=== PATIENT | male | born 1945 | race Caucasian/White ===

== ENCOUNTER 2020-06-25 10:42 | Inpatient (IN) | payer MEDICARE ==
[2020-06-25] MEDS ORDERED: IPRATROPIUM-ALBUTEROL 3 ML NEB INHALATION STA (11:14)
[2020-06-25] MEDS ORDERED: FUROSEMIDE 10 MG/ML 4 ML VIAL IV STA (11:14)
--- NOTE | 2020-06-25 11:18 | ED ---
Extremity Problem HPI - General Chief complaint: Extremity Problem,Nontraumatic Stated complaint: chest pain Time Seen by Provider: 06/25/20 10:55 Source: patient, family, RN notes reviewed Mode of arrival: ambulatory Limitations: no limitations - History of Present Illness Initial comments: This is a 74-year-old male who is a former smoker who denies any history of COPD or lung disease who does state he's been having peripheral edema to his legs for past 2 or 3 weeks also exertional dyspnea and chest pressure when he tries to walk at rest currently he has no pain or shortness of breath he has a fevers chills or sweats he denies any phlegm or cough this time no chest tightness or pain. No other modifying factors he is currently not taking any type of diuretic. MD Complaint: extremity swelling, other - Related Data Home Medications Medication Instructions Recorded Confirmed Aspirin EC [Ecotrin] 325 mg PO W/LUNCH 06/25/20 06/25/20 Furosemide [Lasix] 20 mg PO DAILY 06/25/20 06/25/20 Isosorbide Mononitrate ER [Imdur] 60 mg PO DAILY 06/25/20 06/25/20 Holland-3 Fatty Acids/Fish Oil [Fish 1 cap PO W/LUNCH 06/25/20 06/25/20 Oil 1,000 mg Softgel] Pravastatin Sodium [Pravachol] 80 mg PO HS 06/25/20 06/25/20 amLODIPine [Norvasc] 10 mg PO HS 06/25/20 06/25/20 atenoloL [Tenormin] 50 mg PO DAILY 06/25/20 06/25/20 Allergies Allergy/AdvReac Type Severity Reaction Status Date / Time No Known Allergies Allergy Verified 06/25/20 12:24 Review of Systems ROS Statement: Those systems with pertinent positive or pertinent negative responses have been documented in the HPI. ROS Other: All systems not noted in ROS Statement are negative. Past Medical History Past Medical History: No Reported History History of Any Multi-Drug Resistant Organisms: None Reported Past Surgical History: Cholecystectomy, Prostate Surgery Past Psychological History: No Psychological Hx Reported Smoking Status: Former smoker Past Alcohol Use History: None Reported Past Drug Use History: None Reported General Exam - General Exam Comments Initial Comments: This is a well-developed nourished awake alert oriented times 3 male Limitations: no limitations General appearance: alert, in no apparent distress Head exam: Present: atraumatic, normocephalic, normal inspection Eye exam: Present: normal appearance, PERRL, EOMI. Absent: scleral icterus, conjunctival injection, periorbital swelling ENT exam: Present: normal exam, mucous membranes moist Neck exam: Present: normal inspection, full ROM, other (No Stridor JVD or bruits). Absent: tenderness, meningismus, lymphadenopathy Respiratory exam: Present: decreased breath sounds, other (Basilar crackles). Absent: respiratory distress, wheezes, rales, rhonchi, stridor Cardiovascular Exam: Present: regular rate, normal rhythm, normal heart sounds. Absent: systolic murmur, diastolic murmur, rubs, gallop, clicks GI/Abdominal exam: Present: soft, normal bowel sounds. Absent: distended, tenderness, guarding, rebound, rigid Extremities exam: Present: normal inspection, full ROM, normal capillary refill, pedal edema (Bilateral pedal edema to the knees). Absent: tenderness, joint swelling, calf tenderness Back exam: Present: normal inspection Neurological exam: Present: alert, oriented X3, CN II-XII intact Psychiatric exam: Present: normal affect, normal mood Skin exam: Present: warm, dry, intact, normal color. Absent: rash Course Vital Signs 06/25/20 06/25/20 06/25/20 10:47 12:25 12:30 Temperature 97.8 F Pulse Rate 82 77 80 Respiratory 18 Rate Blood Pressure 133/68 O2 Sat by Pulse 96 Oximetry - Reevaluation(s) Reevaluation #1: 06/25/20 13:07 The patient did get some relief from initial treatment. Patient is definite evidence of CHF peripheral edema. Also has evidence of renal insufficiency with elevated d-dimer. I did discuss the findings with the patient and family as well as Dr. Suárez patient will be admitted Medical Decision Making - Lab Data Result diagrams: 06/25/20 11:20 06/25/20 11:20 Lab Results 06/25/20 06/25/20 06/25/20 Range/Units 11:20 11:20 11:20 WBC 6.2 (3.8-10.6) k/uL RBC 2.88 L (4.30-5.90) m/uL Hgb 7.9 L (13.0-17.5) gm/dL Hct 24.9 L (39.0-53.0) % MCV 86.4 (80.0-100.0) fL MCH 27.3 (25.0-35.0) pg MCHC 31.6 (31.0-37.0) g/dL RDW 15.8 H (11.5-15.5) % Plt Count 481 H (150-450) k/uL Neutrophils % 71 % Lymphocytes % 18 % Monocytes % 7 % Eosinophils % 1 % Basophils % 1 % Neutrophils # 4.4 (1.3-7.7) k/uL Lymphocytes # 1.1 (1.0-4.8) k/uL Monocytes # 0.4 (0-1.0) k/uL Eosinophils # 0.1 (0-0.7) k/uL Basophils # 0.0 (0-0.2) k/uL Hypochromasia Moderate Poikilocytosis Slight PT 11.9 (9.0-12.0) sec INR 1.2 H (<1.2) APTT 24.5 (22.0-30.0) sec D-Dimer 4.65 H (<0.60) mg/L FEU Sodium 128 L (137-145) mmol/L Potassium 4.2 (3.5-5.1) mmol/L Chloride 98 (98-107) mmol/L Carbon Dioxide 19 L (22-30) mmol/L Anion Gap 11 mmol/L BUN 26 H (9-20) mg/dL Creatinine 2.42 H (0.66-1.25) mg/dL Est GFR (CKD-EPI)AfAm 29 (>60 ml/min/1.73 sqM) Est GFR (CKD-EPI)NonAf 25 (>60 ml/min/1.73 sqM) Glucose 106 H (74-99) mg/dL Plasma Lactic Acid Daniele (0.7-2.0) mmol/L Calcium 9.4 (8.4-10.2) mg/dL Magnesium 2.1 (1.6-2.3) mg/dL Total Bilirubin 0.5 (0.2-1.3) mg/dL AST 34 (17-59) U/L ALT 22 (4-49) U/L Alkaline Phosphatase 258 H (38-126) U/L Creatine Kinase 62 (55-170) U/L Troponin I (0.000-0.034) ng/mL NT-Pro-B Natriuret Pep pg/mL Total Protein 6.3 (6.3-8.2) g/dL Albumin 4.1 (3.5-5.0) g/dL 06/25/20 06/25/20 06/25/20 Range/Units 11:20 11:20 11:20 WBC (3.8-10.6) k/uL RBC (4.30-5.90) m/uL Hgb (13.0-17.5) gm/dL Hct (39.0-53.0) % MCV (80.0-100.0) fL MCH (25.0-35.0) pg MCHC (31.0-37.0) g/dL RDW (11.5-15.5) % Plt Count (150-450) k/uL Neutrophils % % Lymphocytes % % Monocytes % % Eosinophils % % Basophils % % Neutrophils # (1.3-7.7) k/uL Lymphocytes # (1.0-4.8) k/uL Monocytes # (0-1.0) k/uL Eosinophils # (0-0.7) k/uL Basophils # (0-0.2) k/uL Hypochromasia Poikilocytosis PT (9.0-12.0) sec INR (<1.2) APTT (22.0-30.0) sec D-Dimer (<0.60) mg/L FEU Sodium (137-145) mmol/L Potassium (3.5-5.1) mmol/L Chloride (98-107) mmol/L Carbon Dioxide (22-30) mmol/L Anion Gap mmol/L BUN (9-20) mg/dL Creatinine (0.66-1.25) mg/dL Est GFR (CKD-EPI)AfAm (>60 ml/min/1.73 sqM) Est GFR (CKD-EPI)NonAf (>60 ml/min/1.73 sqM) Glucose (74-99) mg/dL Plasma Lactic Acid Daniele 1.4 (0.7-2.0) mmol/L Calcium (8.4-10.2) mg/dL Magnesium (1.6-2.3) mg/dL Total Bilirubin (0.2-1.3) mg/dL AST (17-59) U/L ALT (4-49) U/L Alkaline Phosphatase (38-126) U/L Creatine Kinase (55-170) U/L Troponin I 0.032 (0.000-0.034) ng/mL NT-Pro-B Natriuret Pep 3470 pg/mL Total Protein (6.3-8.2) g/dL Albumin (3.5-5.0) g/dL Critical Care Time Critical Care Time: Yes Total Critical Care Time: 31 Critical Care Time: Crit 31 minutes which includes initial presentation with history physical labs x-rays reevaluation patient response to therapy discuss with the admitting physician admission orders neck mentation the above as well as attempts review of old charting Disposition Clinical Impression: Failure, heart acute, congestive, Renal insufficiency, Anemia, Elevated d-dimer Disposition: ADMITTED IP TO THIS HOSP Condition: Fair Referrals: Jimmy Ott MD [Primary Care Provider] - 1-2 days
[2020-06-25 11:37] LABS: Basophils % (A) 1 %; Eosinophils # (A) 0.1 k/uL (0-0.7); Eosinophils % (A) 1 %; HCT 24.9 % (39.0-53.0); HGB 7.9 gm/dL (13.0-17.5); Hypochromasia Moderate; Lymphocytes # (A) 1.1 k/uL (1.0-4.8); Lymphocytes % (A) 18 %; MCH 27.3 pg (25.0-35.0); MCHC 31.6 g/dL (31.0-37.0); MCV 86.4 fL (80.0-100.0); Mean Platelet Volume 8.5; Monocytes # (A) 0.4 k/uL (0-1.0); Monocytes % (A) 7 %; Neutrophils # (A) 4.4 k/uL (1.3-7.7); Neutrophils % (A) 71 %; Platelet Count 481 k/uL (150-450); Poikilocytosis Slight; RBC 2.88 m/uL (4.30-5.90); RDW 15.8 % (11.5-15.5); WBC 6.2 k/uL (3.8-10.6)
[2020-06-25 11:51] LABS: Albumin 4.1 g/dL (3.5-5.0); Calcium 9.4 mg/dL (8.4-10.2); Magnesium 2.1 mg/dL (1.6-2.3); Potassium 4.2 mmol/L (3.5-5.1); Total Bilirubin 0.5 mg/dL (0.2-1.3); Total Protein 6.3 g/dL (6.3-8.2)
[2020-06-25 12:06] LABS: INR 1.2 (<1.2); Partial Thromboplastin Time 24.5 sec (22.0-30.0); Prothrombin Time 11.9 sec (9.0-12.0)
[2020-06-25 12:13] LABS: D-Dimer 4.65 mg/L FEU (<0.60)
--- NOTE | 2020-06-25 12:40 | XR ---
EXAMINATION TYPE: XR chest 2V DATE OF EXAM: 06/25/2020 COMPARISON: None HISTORY: 74-year-old male breath, difficulty breathing, lower extremity edema. TECHNIQUE: AP and lateral views FINDINGS: Heart mildly enlarged. Diffuse vascular prominence. No lateral pleural effusions with adjacent opacit y especially seen well on the lateral view. IMPRESSION: Correlate for CHF with pulmonary vascular congestion. Small bilateral pleural effusions with adjacent atelectasis and/or consolidation.
--- NOTE | 2020-06-25 13:19 | ED ---
Medical Decision Making - Lab Data Result diagrams: 06/25/20 11:20 06/25/20 11:20 Lab Results 06/25/20 06/25/20 06/25/20 Range/Units 11:20 11:20 11:20 WBC 6.2 (3.8-10.6) k/uL RBC 2.88 L (4.30-5.90) m/uL Hgb 7.9 L (13.0-17.5) gm/dL Hct 24.9 L (39.0-53.0) % MCV 86.4 (80.0-100.0) fL MCH 27.3 (25.0-35.0) pg MCHC 31.6 (31.0-37.0) g/dL RDW 15.8 H (11.5-15.5) % Plt Count 481 H (150-450) k/uL Neutrophils % 71 % Lymphocytes % 18 % Monocytes % 7 % Eosinophils % 1 % Basophils % 1 % Neutrophils # 4.4 (1.3-7.7) k/uL Lymphocytes # 1.1 (1.0-4.8) k/uL Monocytes # 0.4 (0-1.0) k/uL Eosinophils # 0.1 (0-0.7) k/uL Basophils # 0.0 (0-0.2) k/uL Hypochromasia Moderate Poikilocytosis Slight PT 11.9 (9.0-12.0) sec INR 1.2 H (<1.2) APTT 24.5 (22.0-30.0) sec D-Dimer 4.65 H (<0.60) mg/L FEU Sodium 128 L (137-145) mmol/L Potassium 4.2 (3.5-5.1) mmol/L Chloride 98 (98-107) mmol/L Carbon Dioxide 19 L (22-30) mmol/L Anion Gap 11 mmol/L BUN 26 H (9-20) mg/dL Creatinine 2.42 H (0.66-1.25) mg/dL Est GFR (CKD-EPI)AfAm 29 (>60 ml/min/1.73 sqM) Est GFR (CKD-EPI)NonAf 25 (>60 ml/min/1.73 sqM) Glucose 106 H (74-99) mg/dL Plasma Lactic Acid Daniele (0.7-2.0) mmol/L Calcium 9.4 (8.4-10.2) mg/dL Magnesium 2.1 (1.6-2.3) mg/dL Total Bilirubin 0.5 (0.2-1.3) mg/dL AST 34 (17-59) U/L ALT 22 (4-49) U/L Alkaline Phosphatase 258 H (38-126) U/L Creatine Kinase 62 (55-170) U/L Troponin I (0.000-0.034) ng/mL NT-Pro-B Natriuret Pep pg/mL Total Protein 6.3 (6.3-8.2) g/dL Albumin 4.1 (3.5-5.0) g/dL 06/25/20 06/25/20 06/25/20 Range/Units 11:20 11:20 11:20 WBC (3.8-10.6) k/uL RBC (4.30-5.90) m/uL Hgb (13.0-17.5) gm/dL Hct (39.0-53.0) % MCV (80.0-100.0) fL MCH (25.0-35.0) pg MCHC (31.0-37.0) g/dL RDW (11.5-15.5) % Plt Count (150-450) k/uL Neutrophils % % Lymphocytes % % Monocytes % % Eosinophils % % Basophils % % Neutrophils # (1.3-7.7) k/uL Lymphocytes # (1.0-4.8) k/uL Monocytes # (0-1.0) k/uL Eosinophils # (0-0.7) k/uL Basophils # (0-0.2) k/uL Hypochromasia Poikilocytosis PT (9.0-12.0) sec INR (<1.2) APTT (22.0-30.0) sec D-Dimer (<0.60) mg/L FEU Sodium (137-145) mmol/L Potassium (3.5-5.1) mmol/L Chloride (98-107) mmol/L Carbon Dioxide (22-30) mmol/L Anion Gap mmol/L BUN (9-20) mg/dL Creatinine (0.66-1.25) mg/dL Est GFR (CKD-EPI)AfAm (>60 ml/min/1.73 sqM) Est GFR (CKD-EPI)NonAf (>60 ml/min/1.73 sqM) Glucose (74-99) mg/dL Plasma Lactic Acid Daniele 1.4 (0.7-2.0) mmol/L Calcium (8.4-10.2) mg/dL Magnesium (1.6-2.3) mg/dL Total Bilirubin (0.2-1.3) mg/dL AST (17-59) U/L ALT (4-49) U/L Alkaline Phosphatase (38-126) U/L Creatine Kinase (55-170) U/L Troponin I 0.032 (0.000-0.034) ng/mL NT-Pro-B Natriuret Pep 3470 pg/mL Total Protein (6.3-8.2) g/dL Albumin (3.5-5.0) g/dL Disposition Clinical Impression: Failure, heart acute, congestive, Renal insufficiency, Anemia, Elevated d- dimer, Acute bronchospasm Disposition: ADMITTED IP TO THIS HOSP Condition: Fair Referrals: Jimmy Ott MD [Primary Care Provider] - 1-2 days
--- NOTE | 2020-06-25 15:09 | NM ---
EXAMINATION TYPE: NM pul vent and perfuse DATE OF EXAM: 06/25/2020 COMPARISON: Chest x-ray same date HISTORY: Difficulty breathing, elevated d-dimer, congestive heart failure TECHNIQUE: Utilizing inhalation of 70.2 mCi Tc 99m DTPA aerosol and intravenous injection of 5.05 mC i of Tc 99m MAA, ventilation and perfusion images are acquired post injection in multiple projections . FINDINGS: Normal radiotracer distribution is noted in the lungs. There is no evidence of mismatched defects. IMPRESSION: Low probability of pulmonary embolus.
--- NOTE | 2020-06-25 15:53 | US ---
EXAMINATION TYPE: US venous doppler duplex LE DATE OF EXAM: 06/25/2020 3:42 PM COMPARISON: NONE CLINICAL HISTORY: Peripheral edema bilateral, elevated d-dimer. SIDE PERFORMED: Bilateral TECHNIQUE: The lower extremity deep venous system is examined utilizing real time linear array sonog beulah with graded compression, doppler sonography and color-flow sonography. VESSELS IMAGED: External Iliac Vein (EIV) Common Femoral Vein Deep Femoral Vein Greater Saphenous Vein * Femoral Vein Popliteal Vein Small Saphenous Vein * Proximal Calf Veins (* superficial vessels) There is normal flow, compressibility, vascular waveforms. Right Leg: Negative for DVT Left Leg: Negative for DVT IMPRESSION: No evident deep venous thrombosis at or above the knees.
[2020-06-25] MEDS: IPRATROPIUM-ALBUTEROL 3 ML NEB INHALATION SCH ×2 (16:09→20:28)
[2020-06-25] MEDS ORDERED: IPRATROPIUM-ALBUTEROL 3 ML NEB INHALATION PRN (20:32)
[2020-06-25] MEDS: PRAVASTATIN SODIUM 80 MG TAB PO SCH (20:52)
[2020-06-25] MEDS ORDERED: amLODIPine 10 MG TAB PO SCH (21:00)
[2020-06-26] MEDS: FUROSEMIDE 10 MG/ML 4 ML VIAL IV SCH ×2 (00:17→13:08)
[2020-06-26] MEDS: IPRATROPIUM-ALBUTEROL 3 ML NEB INHALATION SCH ×4 (07:46→18:50)
[2020-06-26] MEDS ORDERED: FUROSEMIDE 20 MG TAB PO SCH (09:00)
[2020-06-26] MEDS ORDERED: atenoloL 50 MG TAB PO SCH (09:00)
[2020-06-26] MEDS: hydrALAZINE HCL 25 MG TAB PO SCH ×3 (09:40→20:48)
[2020-06-26] MEDS: ISOSORBIDE MONONITRATE ER 60 MG TAB.ER.24H PO SCH (09:40)
[2020-06-26] MEDS: ASPIRIN 81 MG PO SCH (09:40)
[2020-06-26 10:56] VITALS: RESP 16
[2020-06-26 11:06] VITALS: BMI 23.6
--- NOTE | 2020-06-26 11:49 | ECHOF ---
Referral Reason:lv function MEASUREMENTS -------- HEIGHT: 172.7 cm WEIGHT: 70.3 kg BP: 119/87 RVIDd: 3.2 cm (< 3.3) IVSd: 1.2 cm (0.6 - 1.1) LVIDd: 4.3 cm (3.9 - 5.3) LVPWd: 1.3 cm (0.6 - 1.1) IVSs: 1.5 cm LVIDs: 2.8 cm LVPWs: 1.8 cm LA Diam: 5.1 cm (2.7 - 3.8) LAESV Index (A-L): 44.66 ml/m Ao Diam: 3.4 cm (2.0 - 3.7) AV Cusp: 2.0 cm (1.5 - 2.6) MV EXCURSION: 17.701 mm (> 18.000) MV EF SLOPE: 86 mm/s (70 - 150) EPSS: 0.3 cm RAP: 5.00 mmHg RVSP: 40.13 mmHg FINDINGS -------- Sinus rhythm. This was a technically good study. The left ventricular size is normal. There is mild concentric left ventricular hypertrophy. Overa ll left ventricular systolic function is normal with, an EF between 55 - 60 %. The right ventricle is normal in size. The left atrium is markedly dilated. The right atrial size is normal. There is [id number] aortic regurgitation. Mild mitral annular calcification present. Moderate mitral regurgitation is present. Mild tricuspid regurgitation present. There is mild pulmonary hypertension. There is no pulmonic regurgitation present. The aortic root size is normal. There is no pericardial effusion. CONCLUSIONS -------- 1. The left ventricular size is normal. 2. There is mild concentric left ventricular hypertrophy. 3. Overall left ventricular systolic function is normal with, an EF between 55 - 60 %. 4. The right ventricle is normal in size. 5. The left atrium is markedly dilated. 6. The right atrial size is normal. 7. There is [id number]-[id number] aortic regurgitation. 8. Mild mitral annular calcification present. 9. Moderate mitral regurgitation is present. 10. Mild tricuspid regurgitation present. 11. There is mild pulmonary hypertension. 12. There is no pulmonic regurgitation present. 13. The aortic root size is normal. 14. There is no pericardial effusion. STATE COMPTROLLER: Mya Stark RDCS
[2020-06-26] MEDS ORDERED: ASPIRIN 325 MG TAB PO SCH (12:30)
[2020-06-26] MEDS ORDERED: NON FORMULARY DRUG (Omega-3 Fatty Acids/Fish Oil [Fish Oil 1,000 Mg Softgel] 1 CAP) PO SCH (12:30)
[2020-06-26] MEDS ORDERED: DARBEPOETIN ALFA 60 MCG/0.3 ML SYRINGE SQ SCH (13:00)
--- NOTE | 2020-06-26 16:37 | CONS ---
CONSULTATION This is a 74-year-old gentleman with a known history of renal failure. He usually has his nephrology care at [facility]. He has hypertension, hyperlipidemia and chronic kidney disease. He is here in the hospital because of increasing swelling of lower extremities. He came to the emergency room and was found to have edema of lower extremities and elevated D-dimer. He also complained of nondescript chest tightness and pressure. I am seeing him mainly because of possible congestive heart failure. He has no chest discomfort. Denies any palpitations or syncope but does have shortness of breath with activity. He is known to have chronic CKD, sees a health technician, but lower extremity edema has increased lately. PAST MEDICAL HISTORY: 1. Hypertension. 2. Chronic kidney disease. 3. History of cholecystectomy and prostate surgery. MEDICATIONS: Medications at home include aspirin, Lasix 20 mg daily, Imdur 60 mg daily, pravastatin 80 mg daily, amlodipine 10 mg daily, atenolol 50 mg daily. ALLERGIES: NO KNOWN DRUG ALLERGIES. PHYSICAL EXAMINATION: On examination, blood pressure is 128/70, pulse rate is 80 per minute. HEENT: Unremarkable. Fundus was not examined by me. NECK: Supple. There is JVD of 1 cm. No carotid bruit. CHEST: S1, S2 heard normally. Short systolic murmur noted. Lungs reveal diminished air entry over both bases with fine rales. Abdomen is soft, nontender. Lower extremities reveal bilateral 2+ edema, diminished pulses. CENTRAL NERVOUS SYSTEM: Grossly no focal deficits. EKG revealed a sinus mechanism with inferior Q-waves, raising the possibility of inferior nondiagnostic Q-waves and incomplete right bundle branch block pattern with nonspecific ST and T-wave changes. LABORATORY DATA: Three sets of troponins are unremarkable. His BNP is elevated at 3400. Albumin level is normal. D-dimer is elevated. This patient had a bilateral lower extremity venous Doppler which was negative for any DVT and he also had a low-probability V/Q scan. IMPRESSION: 1. Mild exacerbation of heart failure, probably systolic. 2. Lower extremity edema of unclear etiology. Could be multifactorial related to amlodipine as well as underlying CHF as well, and this needs to be looked into. 3. Chronic kidney disease with a creatinine in the range of 2.5 or so. RECOMMENDATIONS: I am recommending that we do some cautious diuresis with Lasix at 40 mg q.12 hours. Obtain echocardiogram to assess LV function. Seek input from Nephrology. Based on this, we will make further recommendations. I discussed my thoughts in detail with the patient. Thank you very much for the consult. HAWA / ARNULFON: [id number] /
--- NOTE | 2020-06-26 16:43 | CONS ---
CONSULTATION REASON FOR CONSULT: Renal failure. HISTORY OF PRESENT ILLNESS: Patient is a 74-year-old male who has chronic kidney disease stage [address] Arteaga in [place]. Patient was admitted to the hospital with complaints of increased lower extremity swelling and some shortness of breath which has been progressively worsening. He denied any chest pains. No nausea, vomiting, abdominal pain or diarrhea. No fever or chills. No cough. PAST MEDICAL HISTORY: Chronic kidney disease, hypertension, dyslipidemia. PAST SURGICAL HISTORY: Cholecystectomy. SOCIAL HISTORY: Patient is a former smoker. No history of drug abuse or alcohol abuse. MEDICATIONS: Prior to admission included Imdur, Lasix, aspirin, Pravachol, Norvasc, Tenormin. ALLERGIES: None. REVIEW OF SYSTEMS: As per HPI. Other systems negative. PHYSICAL EXAMINATION: Patient is comfortable, awake. He is not in any acute distress. Blood pressure was 121/65, heart rate 80 per minute, he is afebrile. Examination of the heart S1, S2. Examination of the lungs, bilateral breath sounds are heard. Abdomen is soft, nontender. Examination of the lower extremities shows trace edema bilaterally. JEWEL DIAMETER GAUGER exam grossly intact. LABS: Show sodium of 128, potassium 4.2, chloride 98, CO2 is 19, BUN 26, serum creatinine 2.42, albumin is 4.1. UA is not available. INR 1.2. Hemoglobin 7.9, white cell count 6.2. Chest x-ray shows CHF with bilateral pleural effusions as well. Echocardiogram done this admission shows ejection fraction 55%-60%. [id number] aortic regurgitation. Mild pulmonary hypertension noted. ASSESSMENT: 1. Chronic kidney disease stage 4 with baseline creatinine about 2.3 per patient. Etiology is likely nephrosclerosis versus chronic GN. The patient follows with Dr. Arteaga as outpatient in [place]. He is advised to maintain follow up as outpatient. Renal function appears to be at baseline according to the patient. At this time we do not have any prior labs available for comparison. 2. Acute on top of chronic diastolic with ejection fraction 55% to 60%. 3. Volume overload. 4. Hypertension. 5. Anemia of chronic disease, rule out iron deficiency. No active bleeding noted at this time. PLAN: Continue with current dose of IV Lasix. Check urinalysis. Check iron profile. Add Aranesp for anemia. Thank you for this consultation. Will continue to follow the patient with you during his hospitalization. HAWA / ARNULFON: [id number] /
[2020-06-26] MEDS: FUROSEMIDE 10 MG/ML 10 ML VIAL IV SCH ×2 (17:27→20:48)
[2020-06-26 17:47] LABS: Appearance,Urine Clear (Clear); Bilirubin,Urine Negative (Negative); Blood,Urine Trace (Negative); Color,Urine Colorless; Glucose,Urine (UA) Negative (Negative); Ketones,Urine Negative (Negative); Leukocyte Esterase,Urine Negative (Negative); Nitrite,Urine Negative (Negative); PH, Urine 6.5 (5.0-8.0); Protein,Urine Trace (Negative); Specific Gravity,Urine 1.004 (1.001-1.035); Urobilinogen,Urine <2.0 mg/dL (<2.0); WBC,Urine <1 /hpf (0-5)
--- NOTE | 2020-06-26 19:40 | P.HPIM ---
History of Present Illness H&P Date: 06/26/20 Chief Complaint: Shortness of breath History of presenting complaint: This is a 74-year-old patient of Dr. Ott. Chronic stable medical conditions include hypertension, hyperlipidemia, chronic kidney disease that he follows with Dr. Arteaga. Patient had surgery for BPH but patient had that his symptoms go for long time that resulted this chronic kidney disease. Patient for about 3 weeks and noticed some swelling of the lower extremity. Progressively getting worse. Had been getting tired. Also notices getting short of breath with exertion. No cough. No fever no chills. Also noticed some chest pressure on exertion. Also was having orthopnea and was in fact last few days sitting up in a chair and sleeping. Appetite had gone down. Patient was given IV Lasix in the ER and breathing is better this morning. Daughter the bedside. Edema started to go down. Review of systems: GEN.: Tired EYES: None HEENT: None NECK: None RESPIRATORY: As above CARDIOVASCULAR: As above GASTROINTESTINAL: None GENITOURINARY: None MUSCULOSKELETAL: Joint pains LYMPHATICS: None HEMATOLOGICAL: None PSYCHIATRY: None NEUROLOGICAL: None Past medical history to include: Hypertension, hyperlipidemia chronic kidney disease, BPH treated with surgery Social history: . Did smoke in the past. No alcohol. Physical examination: VITAL SIGNS: 97.8, 82, 18, 133/68, 96% room air] GENERAL: BMI 23.6, sitting up, not in distress. EYES: Pupils equal. Conjunctiva normal. HEENT: External appearance of nose and ears normal, oral cavity grossly normal. NECK: JVD raised; masses not palpable. HEART: First and second heart sounds are normal; some edema. LUNGS: Respiratory rate normal; basal crackles. ABDOMEN: Soft, nontender, liver spleen not palpable, no masses palpable. PSYCH: Alert and oriented x3; mood and affect normal MUSCULAR skeletal: Evidence of OA. NEUROLOGICAL: Cranial nerves grossly intact; no facial asymmetry, power and sensation grossly intact. LYMPHATICS: No lymph nodes palpable in the axilla and neck INVESTIGATIONS, reviewed in the clinical context: White count 6.2 hemoglobin 7.9 platelets 481 potassium 4.2 bun 26 creatinine 2.4 to Troponin I 0.032, 0.031, 0.033 ProBNP 3470 EKG tracing personally reviewed by me-sinus rhythm with some ST segment changes and T wave changes Chest x-ray film personally reviewed by me-pulmonary edema with left pleural effusion VQ scan low probably for PE Doppler ultrasound lower extremity negative for DVT 2-D echocardiogram EF 55/60% mild LVH, moderate MR Assessment: -Acute congestive heart failure exacerbation from gastric dysfunction EF 55-60% -Moderate mitral regurgitation -Chronic kidney disease stage III likely nephrosclerosis -Essential hypertension -Hyperlipidemia -Anemia likely of chronic kidney disease Plan: Care was discussed length with patient daughter the bedside. Patient advised to limit his fluid intake. Change Lasix to 60 mg every 8. Repeat labs in the morning. Consultation made to nephrology and cardiology. Other home medications to BE continue. Past Medical History Past Medical History: Hyperlipidemia, Hypertension, Renal Disease History of Any Multi-Drug Resistant Organisms: None Reported Past Surgical History: Cholecystectomy, Prostate Surgery Past Anesthesia/Blood Transfusion Reactions: No Reported Reaction Past Psychological History: No Psychological Hx Reported Smoking Status: Former smoker Past Alcohol Use History: None Reported Past Drug Use History: None Reported - Past Family History Mother Family Medical History: Cancer Additional Family Medical History / Comment(s): passed at 78 y/o Father Additional Family Medical History / Comment(s): from TB; patient was not in contact with father at the time. Medications and Allergies Home Medications Medication Instructions Recorded Confirmed Type Aspirin EC [Ecotrin] 325 mg PO W/LUNCH 06/25/20 06/25/20 History Furosemide [Lasix] 20 mg PO DAILY 06/25/20 06/25/20 History Isosorbide Mononitrate ER [Imdur] 60 mg PO DAILY 06/25/20 06/25/20 History [place]-3 Fatty Acids/Fish Oil [Fish 1 cap PO W/LUNCH 06/25/20 06/25/20 History Oil 1,000 mg Softgel] Pravastatin Sodium [Pravachol] 80 mg PO HS 06/25/20 06/25/20 History amLODIPine [Norvasc] 10 mg PO HS 06/25/20 06/25/20 History atenoloL [Tenormin] 50 mg PO DAILY 06/25/20 06/25/20 History Allergies Allergy/AdvReac Type Severity Reaction Status Date / Time No Known Allergies Allergy Verified 06/25/20 12:24 Physical Exam Vitals: Vital Signs Temp Pulse Pulse Resp BP BP Pulse Ox 06/26/20 04:00 98.3 F 81 17 119/87 06/26/20 00:00 98.0 F 86 16 123/68 06/25/20 20:44 80 06/25/20 20:28 80 06/25/20 19:58 97.8 F 86 16 142/70 06/25/20 16:21 80 06/25/20 16:11 76 06/25/20 15:53 97.8 F 79 18 122/67 96 06/25/20 14:55 97.8 F 81 18 132/75 96 06/25/20 13:13 79 18 122/67 96 06/25/20 12:30 80 06/25/20 12:25 77 06/25/20 10:47 97.8 F 82 18 133/68 96 Intake and Output 06/25/20 06/26/20 06/26/20 22:59 06:59 14:59 Intake Total 100 118 Output Total 300 Balance 100 -300 118 Intake: Oral 100 118 Output: Urine 300 Other: Weight 70.4 kg Results CBC & Chem 7: 06/25/20 11:20 06/25/20 11:20 Labs: Abnormal Lab Results - Last 24 Hours (Table) 06/25/20 06/25/20 06/25/20 Range/Units 11:20 11:20 11:20 RBC 2.88 L (4.30-5.90) m/uL Hgb 7.9 L (13.0-17.5) gm/dL Hct 24.9 L (39.0-53.0) % RDW 15.8 H (11.5-15.5) % Plt Count 481 H (150-450) k/uL INR 1.2 H (<1.2) D-Dimer 4.65 H (<0.60) mg/L FEU Sodium 128 L (137-145) mmol/L Carbon Dioxide 19 L (22-30) mmol/L BUN 26 H (9-20) mg/dL Creatinine 2.42 H (0.66-1.25) mg/dL Glucose 106 H (74-99) mg/dL Alkaline Phosphatase 258 H (38-126) U/L Thrombosis Risk Factor Assmnt - Choose All That Apply Any of the Below Risk Factors Present?: Yes Each Factor Represents 1 point: Heart failure (<1month), Swollen legs (current) Each Risk Factor Represents 2 Points: Age 61-74 years Thrombosis Risk Factor Assessment Total Risk Factor Score: 4 Thrombosis Risk Factor Assessment Level: Moderate Risk
[2020-06-26 20:34] LABS: % Iron Saturation 2.72 (15.00-50.00)
[2020-06-26] MEDS: PRAVASTATIN SODIUM 80 MG TAB PO SCH (20:48)
[2020-06-27 03:49] VITALS: TEMP 97.9
[2020-06-27] MEDS: IPRATROPIUM-ALBUTEROL 3 ML NEB INHALATION SCH ×3 (07:53→15:28)
[2020-06-27] MEDS: ASPIRIN 81 MG PO SCH (08:41)
[2020-06-27] MEDS: FUROSEMIDE 10 MG/ML 10 ML VIAL IV SCH (08:41)
[2020-06-27] MEDS: ISOSORBIDE MONONITRATE ER 60 MG TAB.ER.24H PO SCH (08:41)
[2020-06-27] MEDS: hydrALAZINE HCL 25 MG TAB PO SCH (08:41)
[2020-06-27 08:48] VITALS: BP 111/65
[2020-06-27] MEDS ORDERED: METOPROLOL TARTRATE 25 MG TAB PO SCH (09:00)
[2020-06-27 11:45] VITALS: PULSE 88
[2020-06-27 13:16] LABS: Calcium 9.2 mg/dL (8.4-10.2); Potassium 3.2 mmol/L (3.5-5.1)
--- NOTE | 2020-06-27 15:49 | P.PN ---
Subjective Progress Note Date: 06/27/20 Follow-up for C daily. Feels better. Volume status much better no nausea vomiting diarrhea. Making good urine. Objective - Vital Signs Vital signs: Vital Signs Temp 97.9 F 06/27/20 03:47 Pulse 88 06/27/20 11:43 Resp 16 06/27/20 11:04 BP 111/65 06/27/20 08:00 Pulse Ox 95 06/27/20 08:00 Intake & Output 06/26/20 06/27/20 06/27/20 18:59 06:59 18:59 Intake Total 838 360 Output Total 1600 1850 Balance -762 -1490 Weight 70.4 kg 70.1 kg Intake: Oral 838 360 Output: Urine 1600 1850 - Exam No acute distress S1-S2 heard Lungs clear Abdomen soft Trace edema - Labs CBC & Chem 7: 06/25/20 11:20 06/27/20 12:51 Labs: Abnormal Lab Results - Last 24 Hours (Table) 06/25/20 06/26/20 06/27/20 Range/Units 11:20 17:21 12:51 Sodium 132 L (137-145) mmol/L Potassium 3.2 L (3.5-5.1) mmol/L Chloride 93 L (98-107) mmol/L BUN 28 H (9-20) mg/dL Creatinine 2.67 H (0.66-1.25) mg/dL Glucose 115 H (74-99) mg/dL Iron 12 L (65-175) ug/dL % Saturation 2.72 L (15.00-50.00) Urine Protein Trace H (Negative) Urine Blood Trace H (Negative) Assessment and Plan Assessment: #1 chronic kidney disease stage IV secondary to nephrosclerosis versus chronic GN. Baseline creatinine of 2.3 MG per DL. #2 diastolic CHF #3 volume overload #4 hypertension with chronic kidney disease #5 anemia with chronic kidney disease #6 metabolic bone disease. Plan: #1 renal function stable close to baseline. Anticipate to rise in creatinine with diuresis. #2 agree with changing IV Lasix to 40 mg by mouth twice a day. #3 replace potassium 20 mEq daily at discharge. #4 stable from nephrology point of for discharge to follow-up with primary nephrology next week in the clinic with repeat BMP.
[2020-06-27] MEDS ORDERED: POTASSIUM CHLORIDE ER 20 MEQ TAB.ER PO STA (16:18)
--- NOTE | 2020-06-27 16:34 | PN ---
PROGRESS NOTE Mr. Dawson is a 74-year-old gentleman that is admitted to hospital with acute exacerbation of chronic systolic heart failure and lower extremity edema and chronic renal insufficiency. He is treated with IV Lasix. I am seeing the patient for the first time today and the patient's symptoms have improved significantly. He had an echocardiogram that showed normal LV function with an ejection fraction of 55-60%, moderate mitral regurgitation and mild to moderate aortic regurgitation. I spoke to Dr. Suárez, the hospitalist, and the plan at this stage is to discharge him home and arrange follow up with his own equal opportunity specialist. EXAM: Heart rate is 97 beats per minute, blood pressure is 111/65, respiratory rate is 18, O2 saturation is 95% on room air. There is no jugular venous distention. Chest exam reveals good air entry bilaterally. Heart exam reveals first and second heart sounds. No gallop. Has a systolic murmur at the left lower sternal border. Abdomen is soft. Exam of extremities did not reveal any edema. Peripheral pulses are felt. Exam of extremities reveals bilateral pitting edema but this has improved. The patient had a V/Q scan that is negative for pulmonary embolism. ASSESSMENT: 1. Acute exacerbation of chronic diastolic heart failure. 2. Dyslipidemia. 3. Chronic renal insufficiency. PLAN: Patient is switched to p.o. Lasix, discharge home and follow up with his own equal opportunity specialist. MMODL / IJN: [id number] /
[2020-06-27] MEDS ORDERED: POTASSIUM CHLORIDE ER 20 MEQ TAB.ER PO SCH (17:00)
--- NOTE | 2020-06-27 20:31 | P.DS ---
Providers Date of admission: 06/25/20 13:15 Expected date of discharge: 06/27/20 Attending physician: Tacos Suárez Consults: 06/25/20 15:34 Consult Physician Routine Consulting Provider: Grabiel Velasco Consult Reason/Comments: Heart Failure Do you want consulting provider notified?: Yes 06/26/20 08:50 Consult Physician Routine Consulting Provider: Raine Lima Consult Reason/Comments: CKD Do you want consulting provider notified?: Yes Primary care physician: Jimmy [facility] Course: Chief Complaint: Shortness of breath History of presenting complaint: This is a 74-year-old patient of Dr. Ott. Chronic stable medical conditions include hypertension, hyperlipidemia, chronic kidney disease that he follows with Dr. Arteaga. Patient had surgery for BPH but patient had that his symptoms go for long time that resulted this chronic kidney disease. Patient for about 3 weeks and noticed some swelling of the lower extremity. Progres sively getting worse. Had been getting tired. Also notices getting short of breath with exertion. No cough. No fever no chills. Also noticed some chest pressure on exertion. Also was having orthopnea and was in fact last few days sitting up in a chair and sleeping. Appetite had gone down. Patient was given IV Lasix in the ER and breathing is better this morning. Daughter the bedside. Edema started to go down. Admitted with CHF exacerbation. EF 55-60%. Responded well to IV Lasix. Seen by cardiology and nephrology. Today-doing well. Breathing much improved. Up and about. Discussed with Dr. oRwe. Care discussed with the patient. To follow-up with cardiology and nephrology. Potassium replaced. Discussion and discharge planning more than 35 minutes Consultation: [facility] Physical examination: VITAL SIGNS: Afebrile, 97, 16, 111/65, 95% room air GENERAL: Sitting up, comfortable EYES: Pupils equal. Conjunctiva normal. HEENT: External appearance of nose and ears normal, oral cavity grossly normal. NECK: JVD raised; masses not palpable. HEART: First and second heart sounds are normal; no edema. Systolic murmur LUNGS: Respiratory rate normal; basal crackles. ABDOMEN: Soft, nontender, liver spleen not palpable, no masses palpable. PSYCH: Alert and oriented x3; mood and affect normal MUSCULAR skeletal: Evidence of OA. INVESTIGATIONS, reviewed in the clinical context: Potassium 3.2 creatinine 2.67 Previous testing White count 6.2 hemoglobin 7.9 platelets 481 potassium 4.2 bun 26 creatinine 2.4 to Troponin I 0.032, 0.031, 0.033 ProBNP 3470 EKG tracing personally reviewed by me-sinus rhythm with some ST segment changes and T wave changes Chest x-ray film personally reviewed by me-pulmonary edema with left pleural effusion VQ scan low probably for PE Doppler ultrasound lower extremity negative for DVT 2-D echocardiogram EF 55/60% mild LVH, moderate MR Assessment: -Acute congestive heart failure exacerbation from diastolic dysfunction EF 55- 60% -Moderate mitral regurgitation -Chronic kidney disease stage III likely nephrosclerosis -Essential hypertension -Hyperlipidemia -Anemia likely of chronic kidney disease Disposition: Home Patient Condition at Discharge: Stable Plan - Discharge Summary New Discharge Prescriptions: New hydrALAZINE HCL [Apresoline] 25 mg PO TID #90 tab Aspirin 81 mg PO W/LUNCH chew Furosemide [Lasix] 40 mg PO BID #60 tablet Metoprolol Tartrate [Lopressor] 25 mg PO BID #60 tab Continue Pravastatin Sodium [Pravachol] 80 mg PO HS [place]-3 Fatty Acids/Fish Oil [Fish Oil 1,000 mg Softgel] 1 cap PO W/LUNCH Isosorbide Mononitrate ER [Imdur] 60 mg PO DAILY Discontinued atenoloL [Tenormin] 50 mg PO DAILY amLODIPine [Norvasc] 10 mg PO HS Aspirin EC [Ecotrin] 325 mg PO W/LUNCH Furosemide [Lasix] 20 mg PO DAILY Discharge Medication List Isosorbide Mononitrate ER [Imdur] 60 mg PO DAILY 06/25/20 [History] [place]-3 Fatty Acids/Fish Oil [Fish Oil 1,000 mg Softgel] 1 cap PO W/LUNCH 06/25/20 [History] Pravastatin Sodium [Pravachol] 80 mg PO HS 06/25/20 [History] Aspirin 81 mg PO W/LUNCH chew 06/27/20 [Rx] Furosemide [Lasix] 40 mg PO BID #60 tablet 06/27/20 [Rx] Metoprolol Tartrate [Lopressor] 25 mg PO BID #60 tab 06/27/20 [Rx] hydrALAZINE HCL [Apresoline] 25 mg PO TID #90 tab 06/27/20 [Rx] Follow up Appointment(s)/Referral(s): catdiologistdr [Other] - 1 Week kidney-doctord[facility] [Other] - 1 Week Jimmy Ott MD [Primary Care Provider] - 1-2 days Patient Instructions/Handouts: Heart Failure (ER) Activity/Diet/Wound Care/Special Instructions: bmp- 3 days Discharge Disposition: HOME SELF-CARE
== END 2020-06-27 18:02 | disposition home or self-care (01) | DRG 291 ==
LOC: EC 10:42 → 3SCARD 13:15
PROVIDERS: ADMIT Hospitalist; ATTEND Hospitalist
DX: I13.0 Hypertensive heart and chronic kidney disease with heart failure and stage 1 through stage 4 chronic kidney disease, or unspecified chronic kidney disease (principal); I50.33 Acute on chronic diastolic (congestive) heart failure; N18.4 Chronic kidney disease, stage 4 (severe); E78.5 Hyperlipidemia, unspecified; D63.1 Anemia in chronic kidney disease; N40.0 Benign prostatic hyperplasia without lower urinary tract symptoms; I27.20 Pulmonary hypertension, unspecified; E88.89 Other specified metabolic disorders; I08.0 Rheumatic disorders of both mitral and aortic valves; Z87.891 Personal history of nicotine dependence; Z79.899 Other long term (current) drug therapy; Z90.49 Acquired absence of other specified parts of digestive tract; Z80.9 Family history of malignant neoplasm, unspecified; Z83.6 Family history of other diseases of the respiratory system
CPT/HCPCS: 36415; 71046; 78582; 80048; 80053; 81001; 82550; 83540; 83550; 83605; 83735; 83880; 84484; 85025; 85379; 85610; 85730; 93005; 93306; 93970; 94640; 94760; 96374; 99291

== ENCOUNTER 2020-07-20 06:41 | Inpatient (IN) | payer MEDICARE ==
[2020-07-20] MEDS ORDERED: SODIUM CHLORIDE 0.9% 1,000 ML IV STA (06:51)
[2020-07-20] MEDS ORDERED: SODIUM CHLORIDE 0.9% 1,000 ML IV ONE (06:59)
[2020-07-20 07:11] LABS: Anisocytosis Slight; Hypochromasia Marked; MCH 23.8 pg (25.0-35.0); MCHC 28.4 g/dL (31.0-37.0); MCV 83.7 fL (80.0-100.0); Mean Platelet Volume 7.7; Platelet Count 621 k/uL (150-450); Poikilocytosis Moderate; RBC 1.56 m/uL (4.30-5.90); RDW 16.4 % (11.5-15.5); WBC 10.8 k/uL (3.8-10.6)
[2020-07-20 07:13] LABS: HGB 3.7 gm/dL (13.0-17.5)
[2020-07-20 07:14] LABS: HCT 13.1 % (39.0-53.0)
[2020-07-20 07:17] LABS: Albumin 3.4 g/dL (3.5-5.0); Calcium 9.4 mg/dL (8.4-10.2); Potassium 5.3 mmol/L (3.5-5.1); Total Bilirubin 1.1 mg/dL (0.2-1.3); Total Protein 5.3 g/dL (6.3-8.2)
[2020-07-20 07:24] LABS: INR 1.5 (<1.2); Prothrombin Time 14.7 sec (9.0-12.0)
--- NOTE | 2020-07-20 07:30 | ED ---
General Adult HPI - General Source: patient, EMS, RN notes reviewed Mode of arrival: EMS Limitations: no limitations <Yamil Alcazar - Last Filed: 07/20/20 08:21> <Jozef Aldridge - Last Filed: 07/20/20 08:53> - General Chief complaint: GI Bleed Stated complaint: Nausea Time Seen by Provider: 07/20/20 06:51 - History of Present Illness Initial comments: This a 74-year-old male presents emergency department via EMS chief complaint of generalized weakness, possible GI bleed. Patient states he was recently a dmitted for swelling. Patient states she was started on some new medications. Patient states that last few days he's had increasing weakness, joint was not feeling well. Patient states that he does have slight nausea. Denies any pain at this time denies any chest pain, shortness breath, headache or dizziness. Patient denies any fevers, chills. Patient states he has no dysuria. Patient states he noticed some dark stools last 3 days. He denies taking any iron supposed. Denies any blood thinners. Patient states he did not taking some Pepto-Bismol. Patient has no history of GI bleed. Patient denies any vomiting currently. (Yamil Alcazar) - Related Data Home Medications Medication Instructions Recorded Confirmed Pravastatin Sodium [Pravachol] 80 mg PO HS 06/25/20 07/20/20 Furosemide [Lasix] 40 mg PO QAM 07/20/20 07/20/20 Isosorbide Mononitrate ER [Imdur] 30 mg PO HS 07/20/20 07/20/20 amLODIPine [Norvasc] 10 mg PO DAILY 07/20/20 07/20/20 atenoloL [Tenormin] 50 mg PO DAILY 07/20/20 07/20/20 Previous Rx's Medication Instructions Recorded Aspirin 81 mg PO W/LUNCH chew 06/27/20 Metoprolol Tartrate [Lopressor] 25 mg PO BID #60 tab 06/27/20 hydrALAZINE HCL [Apresoline] 25 mg PO TID #90 tab 06/27/20 Allergies Allergy/AdvReac Type Severity Reaction Status Date / Time No Known Allergies Allergy Verified 07/20/20 07:51 Review of Systems ROS Other: All systems not noted in ROS Statement are negative. <Yamil Alcazar - Last Filed: 07/20/20 08:21> ROS Other: All systems not noted in ROS Statement are negative. <Jozef Aldridge - Last Filed: 07/20/20 08:53> ROS Statement: Those systems with pertinent positive or pertinent negative responses have been documented in the HPI. Past Medical History Past Medical History: Hyperlipidemia, Hypertension, Renal Disease History of Any Multi-Drug Resistant Organisms: None Reported Past Surgical History: Cholecystectomy, Prostate Surgery Past Anesthesia/Blood Transfusion Reactions: No Reported Reaction Past Psychological History: No Psychological Hx Reported Smoking Status: Former smoker Past Alcohol Use History: None Reported Past Drug Use History: None Reported - Past Family History Mother Family Medical History: Cancer Additional Family Medical History / Comment(s): passed at 78 y/o Father Additional Family Medical History / Comment(s): from TB; patient was not in contact with father at the time. <Yamil Alcazar Stephanie - Last Filed: 07/20/20 08:21> General Exam Limitations: no limitations General appearance: alert, in no apparent distress Head exam: Present: atraumatic, normocephalic, normal inspection Eye exam: Present: normal appearance, PERRL, EOMI. Absent: scleral icterus, conjunctival injection, periorbital swelling ENT exam: Present: normal exam, normal oropharynx, mucous membranes moist Neck exam: Present: normal inspection, full ROM. Absent: tenderness, meningismus, lymphadenopathy Respiratory exam: Absent: normal lung sounds bilaterally, respiratory distress (tachypneic), wheezes, rales, rhonchi, stridor Cardiovascular Exam: Present: normal rhythm, tachycardia, normal heart sounds. Absent: systolic murmur, diastolic murmur, rubs, gallop, clicks GI/Abdominal exam: Present: soft, normal bowel sounds. Absent: distended, tenderness, guarding, rebound, rigid Rectal exam: Present: black stool Neurological exam: Present: alert, oriented X3 Skin exam: Present: warm, dry, intact, normal color. Absent: rash <Yamil Alcazar Stephanie - Last Filed: 07/20/20 08:21> Course <Yamil Alcazar Stephanie - Last Filed: 07/20/20 08:21> Vital Signs 07/20/20 07/20/20 07/20/20 06:43 07:15 08:10 Temperature 98 F 98.1 F Pulse Rate 112 H 109 H 104 H Respiratory 28 H 30 H 24 Rate Blood Pressure 121/56 120/55 117/59 O2 Sat by Pulse 100 100 100 Oximetry 07/20/20 07/20/20 07/20/20 08:20 08:21 08:46 Temperature 98.1 F 98.1 F Pulse Rate 105 H 105 H 104 H Respiratory 24 24 26 H Rate Blood Pressure 114/64 114/64 130/68 O2 Sat by Pulse 100 100 100 Oximetry - Reevaluation(s) Reevaluation #1: 07/20/20 07:30 Critical value of hemoglobin 3 was called repeat CBC was ordered, type and screen was ordered. Patient does have black tarry stools Protonix was ordered. (Yamil Alcazar) Reevaluation #2: 07/20/20 07:47 Lab call stating his lactic 12. Myself and Dr. Aldridge did go in the room update the patient we did discuss his CODE STATUS he states that he just wants to be comfortable he is a no code does not want any lice measures patient is awake alert and orientated (Yamil Alcazar) EKG Findings - EKG Comments: EKG Findings:: EKG performed at 17:06 sinus tachycardia with PAC, left axis deviation there is diffuse ST changes noted rate of 109 PA 184 QRS 116 QT/QTC 378/509 compared to prior EKG on 06/25/2020 <Yamil Alcazar - Last Filed: 07/20/20 08:21> Medical Decision Making - Lab Data Result diagrams: 07/20/20 06:53 07/20/20 06:53 <Yamil Alcazar - Last Filed: 07/20/20 08:21> - Lab Data Result diagrams: 07/20/20 06:53 07/20/20 06:53 <Jozef Aldridge - Last Filed: 07/20/20 08:53> - Medical Decision Making 74-year-old male presented for generalized weakness. Patient is found to have anemia 3. Blood was ordered at this time. Patient has, anemia lactic acidosis, dehydration, transaminitis, renal failure. Patient is a no code. Case discussed with admitting physician Dr. pearl. Patient will be kept on medical floor as he is a DO NOT RESUSCITATE patient. Patient's family updated by attending physician. (Yamil Alcazar) Patient presenting with generalized weakness, nausea, patient is very ill appearing on initial exam. He is jaundice, pale, he is mildly tachycardic with a stable blood pressure. Workup reveals significant lab abnormalities including profound anemia 3.7, lactic acidosis, both liver failure and renal failure. I suspect this patient is very close to . Discuss his goals of care and he states he is a DO NOT RESUSCITATE and does not want any intervention beyond symptom control and will accept blood transfusion. I discussed this with his and 2 adult children who are bedside. All parties are agreeable. Case discussed with Dr. eJan who will admit the patient and Dr. Rocha who agrees patient is able to be admitted to the floor and does not require ICU secondary to his CODE STATUS and goals of care. (Jozef Aldridge) - Lab Data Lab Results 07/20/20 07/20/20 07/20/20 Range/Units 06:45 06:53 06:53 WBC 10.8 H (3.8-10.6) k/uL RBC 1.56 L (4.30-5.90) m/uL Hgb 3.7 L* D (13.0-17.5) gm/dL Hct 13.1 L* (39.0-53.0) % MCV 83.7 (80.0-100.0) fL MCH 23.8 L (25.0-35.0) pg MCHC 28.4 L (31.0-37.0) g/dL RDW 16.4 H (11.5-15.5) % Plt Count 621 H (150-450) k/uL Neutrophils % (Manual) 92 % Lymphocytes % (Manual) 4 % Monocytes % (Manual) 4 % Neutrophils # (Manual) 9.94 H (1.3-7.7) k/uL Lymphocytes # (Manual) 0.43 L (1.0-4.8) k/uL Monocytes # (Manual) 0.43 (0-1.0) k/uL Nucleated RBCs 0 (0-0) /100 WBC Manual Slide Review Performed Hypochromasia Marked Poikilocytosis Moderate Anisocytosis Slight PT 14.7 H (9.0-12.0) sec INR 1.5 H (<1.2) APTT 18.1 L (22.0-30.0) sec Sodium (137-145) mmol/L Potassium (3.5-5.1) mmol/L Chloride (98-107) mmol/L Carbon Dioxide (22-30) mmol/L Anion Gap mmol/L BUN (9-20) mg/dL Creatinine (0.66-1.25) mg/dL Est GFR (CKD-EPI)AfAm (>60 ml/min/1.73 sqM) Est GFR (CKD-EPI)NonAf (>60 ml/min/1.73 sqM) Glucose (74-99) mg/dL Plasma Lactic Acid Daniele (0.7-2.0) mmol/L Calcium (8.4-10.2) mg/dL Total Bilirubin (0.2-1.3) mg/dL AST (17-59) U/L ALT (4-49) U/L Alkaline Phosphatase (38-126) U/L Ammonia (<30) umol/L Creatine Kinase (55-170) U/L Troponin I (0.000-0.034) ng/mL Total Protein (6.3-8.2) g/dL Albumin (3.5-5.0) g/dL Stool Occult Blood (Negative) Blood Type AB Negative Blood Type Confirm Blood Type Recheck No Previous Record Bld Type Recheck Status CABO Indicated Antibody Screen NEGATIVE Crossmatch See Detail Spec Expiration Date 07/23/2020 - 235207/20/20 07/20/20 07/20/20 Range/Units 06:53 06:53 06:53 WBC (3.8-10.6) k/uL RBC (4.30-5.90) m/uL Hgb (13.0-17.5) gm/dL Hct (39.0-53.0) % MCV (80.0-100.0) fL MCH (25.0-35.0) pg MCHC (31.0-37.0) g/dL RDW (11.5-15.5) % Plt Count (150-450) k/uL Neutrophils % (Manual) % Lymphocytes % (Manual) % Monocytes % (Manual) % Neutrophils # (Manual) (1.3-7.7) k/uL Lymphocytes # (Manual) (1.0-4.8) k/uL Monocytes # (Manual) (0-1.0) k/uL Nucleated RBCs (0-0) /100 WBC Manual Slide Review Hypochromasia Poikilocytosis Anisocytosis PT (9.0-12.0) sec INR (<1.2) APTT (22.0-30.0) sec Sodium 131 L (137-145) mmol/L Potassium 5.3 H (3.5-5.1) mmol/L Chloride 95 L (98-107) mmol/L Carbon Dioxide 8 L* (22-30) mmol/L Anion Gap 28 mmol/L BUN 113 H* (9-20) mg/dL Creatinine 4.94 H (0.66-1.25) mg/dL Est GFR (CKD-EPI)AfAm 12 (>60 ml/min/1.73 sqM) Est GFR (CKD-EPI)NonAf 11 (>60 ml/min/1.73 sqM) Glucose 123 H (74-99) mg/dL Plasma Lactic Acid Daniele 12.0 H* (0.7-2.0) mmol/L Calcium 9.4 (8.4-10.2) mg/dL Total Bilirubin 1.1 (0.2-1.3) mg/dL AST 366 H (17-59) U/L ALT 206 H (4-49) U/L Alkaline Phosphatase 197 H (38-126) U/L Ammonia <9 (<30) umol/L Creatine Kinase 35 L (55-170) U/L Troponin I 0.170 H* (0.000-0.034) ng/mL Total Protein 5.3 L (6.3-8.2) g/dL Albumin 3.4 L (3.5-5.0) g/dL Stool Occult Blood (Negative) Blood Type Blood Type Confirm Blood Type Recheck Bld Type Recheck Status Antibody Screen Crossmatch Spec Expiration Date 07/20/20 07/20/20 Range/Units 07:03 07:08 WBC (3.8-10.6) k/uL RBC (4.30-5.90) m/uL Hgb (13.0-17.5) gm/dL Hct (39.0-53.0) % MCV (80.0-100.0) fL MCH (25.0-35.0) pg MCHC (31.0-37.0) g/dL RDW (11.5-15.5) % Plt Count (150-450) k/uL Neutrophils % (Manual) % Lymphocytes % (Manual) % Monocytes % (Manual) % Neutrophils # (Manual) (1.3-7.7) k/uL Lymphocytes # (Manual) (1.0-4.8) k/uL Monocytes # (Manual) (0-1.0) k/uL Nucleated RBCs (0-0) /100 WBC Manual Slide Review Hypochromasia Poikilocytosis Anisocytosis PT (9.0-12.0) sec INR (<1.2) APTT (22.0-30.0) sec Sodium (137-145) mmol/L Potassium (3.5-5.1) mmol/L Chloride (98-107) mmol/L Carbon Dioxide (22-30) mmol/L Anion Gap mmol/L BUN (9-20) mg/dL Creatinine (0.66-1.25) mg/dL Est GFR (CKD-EPI)AfAm (>60 ml/min/1.73 sqM) Est GFR (CKD-EPI)NonAf (>60 ml/min/1.73 sqM) Glucose (74-99) mg/dL Plasma Lactic Acid Daniele (0.7-2.0) mmol/L Calcium (8.4-10.2) mg/dL Total Bilirubin (0.2-1.3) mg/dL AST (17-59) U/L ALT (4-49) U/L Alkaline Phosphatase (38-126) U/L Ammonia (<30) umol/L Creatine Kinase (55-170) U/L Troponin I (0.000-0.034) ng/mL Total Protein (6.3-8.2) g/dL Albumin (3.5-5.0) g/dL Stool Occult Blood Positive (Negative) Blood Type Blood Type Confirm AB Negative Blood Type Recheck Bld Type Recheck Status Antibody Screen Crossmatch Spec Expiration Date Critical Care Time Critical Care Time: Yes Total Critical Care Time: 35 <Yamil Alcazar - Last Filed: 07/20/20 08:21> Critical Care Time: Total 35 minutes of critical care were used to evaluate the patient, reviewed past medical history, according of labs, EKG. Patient's found to have anemia, lactic of 12.1, acute renal failure. Blood was ordered at the time. Patient did have initial fluid bolus ordered though this is discontinued secondary to he moglobin at 3. Patient will be admitted for further management and consultations. Patient has acute lactic acidosis, renal and liver failure. Patient has anemia. (Yamil Alcazar) Disposition Time of Disposition: 08:24 <Yamil Alcazar - Last Filed: 07/20/20 08:21> <Jozef Aldridge - Last Filed: 07/20/20 08:53> Clinical Impression: Anemia, Transaminitis, Renal failure, GI bleed, Weakness, Dehydration Disposition: ADMITTED IP TO THIS [facility] Condition: Critical Referrals: Jimmy Ott MD [Primary Care Provider] - 1-2 days
[2020-07-20 07:32] LABS: Partial Thromboplastin Time 18.1 sec (22.0-30.0)
[2020-07-20] MEDS: PANTOPRAZOLE 40 MG/10 ML VIAL IVP STA ×2 (07:34→07:35)
[2020-07-20] MEDS ORDERED: ONDANSETRON 4 MG/2 ML VIAL IVP STA (07:47)
[2020-07-20 07:59] LABS: Lymphocytes # (M) 0.43 k/uL (1.0-4.8); Monocytes # (M) 0.43 k/uL (0-1.0); Neutrophils # (M) 9.94 k/uL (1.3-7.7); Neutrophils % (M) 92 %; Nucleated Red Blood Cells 0 /100 WBC (0-0); Total Cells Counted 100
[2020-07-20] MEDS ORDERED: fentaNYL (PF) 50 MCG/ML 2 ML AMP IVP PRN ×2 (08:35→10:49)
[2020-07-20] MEDS ORDERED: ONDANSETRON 4 MG/2 ML VIAL IVP PRN (08:52)
[2020-07-20] MEDS ORDERED: NALOXONE 0.4 MG/ML 1 ML VIAL IV PRN (08:54)
[2020-07-20] MEDS: MORPHINE SULFATE 4 MG/ML SYRINGE IVP PRN ×2 (09:25→10:02)
[2020-07-20] MEDS ORDERED: fentaNYL (PF) 50 MCG/ML 2 ML AMP IVP STA (10:49)
[2020-07-20] MEDS: LORazepam 2 MG/ML INJ IV PRN ×5 (10:52→18:29)
[2020-07-20 10:58] VITALS: TEMP 98.1
[2020-07-20 11:45] VITALS: BP 125/72; PULSE 110
[2020-07-20] MEDS ORDERED: ARTIFICIAL TEARS-HYPROMELLOSE DROPS 15 ML BTL BOTH EYES PRN (13:18)
[2020-07-20] MEDS ORDERED: MORPHINE SULFATE (100 MG/2 ML) 100 MG in SODIUM CHLORIDE 0.9% 100 ML IV SCH (13:30)
[2020-07-20] MEDS ORDERED: SCOPOLAMINE 1.5MG/72HR PATCH TRANSDERM SCH (14:00)
[2020-07-20] MEDS ORDERED: ACETAMINOPHEN SUPPOSITORY 650 MG SUPP RECTAL PRN (16:19)
--- NOTE | 2020-07-20 16:21 | P.HPIM ---
History of Present Illness 74-year-old male was a being admitted for comfort care. Patient came in for possible GI bleed patient has been feeling weak patient is mostly bedbound since his last hospitalization are doing much patient was worked up for malignancy so far no malignancy was found but patient is undergoing extensive testing for his possible malignancy. Patient apparently was having dark stools. Because of this patient was brought to the hospital and patient is found to have multiorgan dysfunction with elevated to liver enzymes hyponatremia acute renal failure and severe anemia. Patient was started on the chest region which was subsequently discontinued. As per the patient wishes family was present at bedside and wanted to him to be comfort care and no further blood transfusions R any further continuation of treatment as per his wishes. Patient's who lives with him is at the bedside along with the rest of the family members. Patient was started on comfort measures including IV morphine drip with as needed fentanyl if needed along with Ativan and anticholinergic medication for secretions. Review of Systems Unable to often and irrelevant at this time. Past Medical History Past Medical History: Heart Failure, Hyperlipidemia, Hypertension, Prostate Disorder, Renal Disease Additional Past Medical History / Comment(s): Pt recently admitted to [facility] on 06/25/20 with exacerbation CHF/EF 55-60%/moderate mitral regurgitation/anemia. Other hx: BPH which caused chronic kidney disease stage III diagnosed in 2010 (pt has had TURP), recent bilateral lower leg edema, pt has been experiencing weight loss/weakness/decreased appetite and was going thru cat scanning to try to diagnose reason/had + cologuard spring 2019 and was told he needed a colonoscopy but this has yet to happen, chronic low back pain. History of Any Multi-Drug Resistant Organisms: None Reported Past Surgical History: Cholecystectomy, Prostate Surgery Additional Past Surgical History / Comment(s): TURP, low back pain Past Anesthesia/Blood Transfusion Reactions: No Reported Reaction Smoking Status: Former smoker - Past Family History Mother Family Medical History: Cancer Additional Family Medical History / Comment(s): Mother had lung cancer that metastasized to her organs and passed at 78 y/o Father Family Medical History: Respiratory Disorder Additional Family Medical History / Comment(s): from TB; patient was not in contact with father at the time. Medications and Allergies Home Medications Medication Instructions Recorded Confirmed Type Pravastatin Sodium [Pravachol] 80 mg PO HS 06/25/20 07/20/20 History Aspirin 81 mg PO W/LUNCH chew 06/27/20 07/20/20 Rx Metoprolol Tartrate [Lopressor] 25 mg PO BID #60 tab 06/27/20 07/20/20 Rx hydrALAZINE HCL [Apresoline] 25 mg PO TID #90 tab 06/27/20 07/20/20 Rx Furosemide [Lasix] 40 mg PO QAM 07/20/20 07/20/20 History Isosorbide Mononitrate ER [Imdur] 30 mg PO HS 07/20/20 07/20/20 History amLODIPine [Norvasc] 10 mg PO DAILY 07/20/20 07/20/20 History atenoloL [Tenormin] 50 mg PO DAILY 07/20/20 07/20/20 History Allergies Allergy/AdvReac Type Severity Reaction Status Date / Time No Known Allergies Allergy Verified 07/20/20 07:51 Physical Exam Vitals: Vital Signs Temp Pulse Resp BP Pulse Ox 07/20/20 15:42 26 H 07/20/20 11:45 110 H 18 125/72 100 07/20/20 11:18 98.1 F 108 H 25 H 124/70 100 07/20/20 10:23 98.1 F 108 H 25 H 138/84 100 07/20/20 10:05 98.0 F 110 H 24 141/80 100 07/20/20 09:53 98.0 F 110 H 24 141/80 100 07/20/20 09:43 98.1 F 106 H 25 H 145/79 100 07/20/20 09:21 98.1 F 106 H 25 H 145/79 100 07/20/20 09:18 109 H 24 142/77 100 07/20/20 08:51 98.1 F 105 H 24 136/79 100 07/20/20 08:46 104 H 26 H 130/68 100 07/20/20 08:21 98.1 F 105 H 24 114/64 100 07/20/20 08:20 98.1 F 105 H 24 114/64 100 07/20/20 08:10 98.1 F 104 H 24 117/59 100 07/20/20 07:15 109 H 30 H 120/55 100 07/20/20 06:43 98 F 112 H 28 H 121/56 100 Intake and Output 07/20/20 07/20/20 07/20/20 06:59 14:59 22:59 Intake Total 570 3.706 Balance 570 3.706 Intake: Intake, IV Titration 3.706 Amount Morphine Sulfate (100 mg/ 3.706 2 ml) 100 mg In Sodium Chloride 0.9% 100 ml @ 2 MG/HR 2.04 mls/hr IV . Q24H [facility] Rx#:[id number] Blood Product 570 Rc As-1 Unit 310 [id number] Rc As-1 Unit 260 [id number] Other: Weight 61.235 kg 61.235 kg PHYSICAL EXAMINATION: GENERAL: Patient is lying in the bed bit to A. To have some respiratory discomfort HEENT: Pupils are bit constricted head is normocephalic atraumatic. CARDIOVASCULAR: S1 and S2 present. No murmurs, rubs, or gallops. PULMONARY: Chest is clear to auscultation, no wheezing or crackles. She does have some gurgling sounds ABDOMEN: Soft, nontender, nondistended, MUSCULOSKELETAL: No joint swelling or deformity. EXTREMITIES: No cyanosis, clubbing, or pedal edema. NEUROLOGICAL: Unable to assess SKIN: No rashes. Results CBC & Chem 7: 07/20/20 06:53 07/20/20 06:53 Labs: Abnormal Lab Results - Last 24 Hours (Table) 07/20/20 07/20/20 07/20/20 Range/Units 06:45 06:53 06:53 WBC 10.8 H (3.8-10.6) k/uL RBC 1.56 L (4.30-5.90) m/uL Hgb 3.7 L* D (13.0-17.5) gm/dL Hct 13.1 L* (39.0-53.0) % MCH 23.8 L (25.0-35.0) pg MCHC 28.4 L (31.0-37.0) g/dL RDW 16.4 H (11.5-15.5) % Plt Count 621 H (150-450) k/uL Neutrophils # (Manual) 9.94 H (1.3-7.7) k/uL Lymphocytes # (Manual) 0.43 L (1.0-4.8) k/uL PT 14.7 H (9.0-12.0) sec INR 1.5 H (<1.2) APTT 18.1 L (22.0-30.0) sec Sodium (137-145) mmol/L Potassium (3.5-5.1) mmol/L Chloride (98-107) mmol/L Carbon Dioxide (22-30) mmol/L BUN (9-20) mg/dL Creatinine (0.66-1.25) mg/dL Glucose (74-99) mg/dL Plasma Lactic Acid Daniele (0.7-2.0) mmol/L AST (17-59) U/L ALT (4-49) U/L Alkaline Phosphatase (38-126) U/L Creatine Kinase (55-170) U/L Troponin I (0.000-0.034) ng/mL Total Protein (6.3-8.2) g/dL Albumin (3.5-5.0) g/dL Crossmatch See Detail 07/20/20 07/20/20 07/20/20 Range/Units 06:53 06:53 06:53 WBC (3.8-10.6) k/uL RBC (4.30-5.90) m/uL Hgb (13.0-17.5) gm/dL Hct (39.0-53.0) % MCH (25.0-35.0) pg MCHC (31.0-37.0) g/dL RDW (11.5-15.5) % Plt Count (150-450) k/uL Neutrophils # (Manual) (1.3-7.7) k/uL Lymphocytes # (Manual) (1.0-4.8) k/uL PT (9.0-12.0) sec INR (<1.2) APTT (22.0-30.0) sec Sodium 131 L (137-145) mmol/L Potassium 5.3 H (3.5-5.1) mmol/L Chloride 95 L (98-107) mmol/L Carbon Dioxide 8 L* (22-30) mmol/L BUN 113 H* (9-20) mg/dL Creatinine 4.94 H (0.66-1.25) mg/dL Glucose 123 H (74-99) mg/dL Plasma Lactic Acid Daniele 12.0 H* (0.7-2.0) mmol/L AST 366 H (17-59) U/L ALT 206 H (4-49) U/L Alkaline Phosphatase 197 H (38-126) U/L Creatine Kinase 35 L (55-170) U/L Troponin I 0.170 H* (0.000-0.034) ng/mL Total Protein 5.3 L (6.3-8.2) g/dL Albumin 3.4 L (3.5-5.0) g/dL Crossmatch Thrombosis Risk Factor Assmnt - Choose All That Apply Any of the Below Risk Factors Present?: Yes Each Factor Represents 1 point: Heart failure (<1month), Medical pt on bed rest Other Risk Factors: Yes Each Risk Factor Represents 2 Points: Patient confined to bed Each Risk Factor Represents 3 Points: Age 75 years or older Other congenital or acquired thrombophilia - If yes, enter type in comment: No Thrombosis Risk Factor Assessment Total Risk Factor Score: 7 Thrombosis Risk Factor Assessment Level: High Risk Assessment and Plan Plan: -Acute GI bleed leading to acute blood loss anemia -Acute renal failure -Transaminitis -Elevated troponins secondary to acute renal failure -Metabolic acidosis both anion gap secondary to lactic acidosis, uremia. Plan Patient is on comfort measures on above-mentioned medications.
[2020-07-20 16:42] VITALS: RESP 24
--- NOTE | 2020-07-22 12:57 | CDI ---
Documentation Clarification Form Date: 07/22/20 From: Ambreen Guo Phone: If you have a question about this query, please contact Shantal Briones Licensed Mortgage Loan Officer at [phone] between 8am and 5pm. Admit Date: 07/20/20 Discharge Date:07/20/20 Patient Name: Randy Dawson Visit Number: [id number] ATTENTION: The Clinical Documentation Specialists (CDI) and [facility] Coding Staff appreciate your assistance in clarifying documentation. Please respond to the clarification below the line at the bottom and electronically sign. The CDI & [facility] Coding staff will review the response and follow-up if needed. Please note: Queries are made part of the Legal Health Record. If you have any questions, please contact the author of this message via ITS. Dear Dr. Jean CHF is documented in the past medical history in the H&P. History/Risk Factors: Hypertension Clinical Indicators: Ejection fraction 55 - 60% VS/Pulse OX: T. 98, P. 112, R 28, BP 121/56, Pulse Ox. 100% on room air BNP: Not tested Echocardiogram Results: Echo done prior to this admission - ejection fraction 55 - 60% Treatment: Lasix 40 mg PO daily home med In your professional opinion, can you please clarify the acuity and type of CHF if known? Systolic Heart Failure: Diastolic Heart Failure: Systolic & Diastolic Heart Failure: Unable to Determine Other, please specify Diastolic Heart Failure: MTDD
--- NOTE | 2020-07-22 13:21 | CDI ---
Documentation Clarification Form Date: 07/22/20 From: Ambreen Guo Phone: If you have a question about this query, please contact Shantal Briones Sales Trader at [phone] between 8am and 5pm. Admit Date: 07/20/20 Discharge Date:07/20/20 Patient Name: Randy Dawson Visit Number: [id number] ATTENTION: The Clinical Documentation Specialists (CDI) and [facility] Coding Staff appreciate your assistance in clarifying documentation. Please respond to the clarification below the line at the bottom and electronically sign. The CDI & [facility] Coding staff will review the response and follow-up if needed. Please note: Queries are made part of the Legal Health Record. If you have any questions, please contact the author of this message via ITS. Dear Dr. Jean The patient presented with the following: Anemia, GI bleed, acute renal failure, hyponatremia. Liver failure was documented in the ED note. You documented transaminitis History/Risk Factors: Hypertension, CKD 3, CHF Clinical Indicators: Jaundice, recently admitted for swelling, nausea, decreased appetite, transaminitis Lab findings: PT - 14.7, INR - 1.5, APTT - 18.1, AST - 366, ALT - 206, Alk Phos - 197, Total bilirubin - 1.1 Vital Signs: T. 98, P. 112, R. 28, BP 121/56 Treatment: No treatment. Patient was made comfort care. In your professional opinion, can you please clarify the liver failure? Liver Failure Acute Chronic Liver Failure Ruled Out Other, please specify Unable to determine Unable to determine MTDD
--- NOTE | 2020-07-22 14:40 | P.DS ---
Providers Date of admission: 07/20/20 08:53 Expected date of discharge: 07/20/20 Attending physician: Anny Jean Primary care physician: Jimmy Ott [facility] Course: Patient was admitted for comfort care, comfort main care measures were initiated and patient the same day please refer to HPI for further details from the same day. Patient Condition at Discharge: Critical Plan - Discharge Summary Discharge Rx Participant: No New Discharge Prescriptions: No Action RX: Pravastatin Sodium [Pravachol] 80 mg PO HS RX: hydrALAZINE HCL [Apresoline] 25 mg PO TID #90 tab RX: Aspirin 81 mg PO W/LUNCH chew RX: Metoprolol Tartrate [Lopressor] 25 mg PO BID #60 tab Furosemide [Lasix] 40 mg PO QAM RX: Isosorbide Mononitrate ER [Imdur] 30 mg PO HS amLODIPine [Norvasc] 10 mg PO DAILY RX: atenoloL [Tenormin] 50 mg PO DAILY Discharge Medication List RX: Pravastatin Sodium [Pravachol] 80 mg PO HS 06/25/20 [History] RX: Aspirin 81 mg PO W/LUNCH chew 06/27/20 [Rx] RX: Metoprolol Tartrate [Lopressor] 25 mg PO BID #60 tab 06/27/20 [Rx] RX: hydrALAZINE HCL [Apresoline] 25 mg PO TID #90 tab 06/27/20 [Rx] Furosemide [Lasix] 40 mg PO QAM 07/20/20 [History] RX: Isosorbide Mononitrate ER [Imdur] 30 mg PO HS 07/20/20 [History] RX: atenoloL [Tenormin] 50 mg PO DAILY 07/20/20 [History] amLODIPine [Norvasc] 10 mg PO DAILY 07/20/20 [History] Follow up Appointment(s)/Referral(s): Jimmy Ott MD [Primary Care Provider] - 1-2 days Discharge Disposition: - Preliminary Cause of Preliminary Cause of : Acute GI bleed
== END 2020-07-20 23:30 | disposition expired | DRG 812 ==
LOC: EC 06:41 → 6NMEDSUR 08:53 → 4SSUR 14:25
PROVIDERS: ADMIT Internal Medicine; ATTEND Internal Medicine
PROC: 30230N1 Transfusion of Nonautologous Red Blood Cells into Peripheral Vein, Open Approach (ICD-10-PCS; principal; 2020-07-20)
DX: D62 Acute posthemorrhagic anemia (principal); E87.1 Hypo-osmolality and hyponatremia; E87.2 Acidosis; I13.0 Hypertensive heart and chronic kidney disease with heart failure and stage 1 through stage 4 chronic kidney disease, or unspecified chronic kidney disease; K92.2 Gastrointestinal hemorrhage, unspecified; N17.9 Acute kidney failure, unspecified; I50.32 Chronic diastolic (congestive) heart failure; K72.90 Hepatic failure, unspecified without coma; N18.3 Chronic kidney disease, stage 3 (moderate); E78.5 Hyperlipidemia, unspecified; E86.0 Dehydration; I34.0 Nonrheumatic mitral (valve) insufficiency; N40.0 Benign prostatic hyperplasia without lower urinary tract symptoms; M54.5 Low back pain; G89.29 Other chronic pain; Z66 Do not resuscitate; Z51.5 Encounter for palliative care; Z79.899 Other long term (current) drug therapy; Z79.82 Long term (current) use of aspirin; Z90.49 Acquired absence of other specified parts of digestive tract; Z87.19 Personal history of other diseases of the digestive system; Z90.79 Acquired absence of other genital organ(s); Z87.891 Personal history of nicotine dependence; Z80.1 Family history of malignant neoplasm of trachea, bronchus and lung; Z83.1 Family history of other infectious and parasitic diseases; Z80.9 Family history of malignant neoplasm, unspecified; Z74.01 Bed confinement status
CPT/HCPCS: 36415; 36430; 80053; 82140; 82272; 82550; 83605; 84484; 85025; 85610; 85730; 86850; 86900; 86901; 86920; 93005; 96365; 96375; 96376; 99291